=== PATIENT | male | born 1950 | race Caucasian/White ===

== ENCOUNTER 2016-05-31 20:26 | Emergency (ER) | payer OTHER ==
[~2016-05-31] VITALS: Ht 193 cm; Wt 176.5 kg
[~2016-05-31 20:26] MED LIST: ACCUPRIL20 MG PO; ASPIRIN81 M2 PO; BP MEDICATION; CADUET 10/101 TABLET PO; CEFADROXIL500 MG PO; CIPROFLOXACIN750 MG; CIPROFLOXACIN750 MG PO; DOLACET 5/5001 EACH PO; HYDROCODON-ACE1 EACH; KEFLEX500 MG PO; METOPROLOL SUC100 MG; METOPROLOL SUC100 MG PO; QUINAPRIL HCL20 MG PO; SPIRONOLACT/HC1 EACH PO; SPIRONOLACTONE-HCTZ; TRAMADOL HCL PO; TRAMADOL HCL100 MG; TRAMADOL HCL50 MG PO; VICODIN,LORT1 TABLET PO
[2016-05-31 21:28] LABS: HEMATOCRIT 52.2 % (38.0-50.0); MCH 22.2 PG (29.0-34.0); MCHC 30.3 G/DL (30.0-36.0); MCV 73.2 FL (86-99); MEAN PLAT.VOLUME 10.7 uM^3 (9.0-12.4); PLATELET COUNT 195 K/uL (156-360); RBC DIS.WIDTH-CV 18.3 % (11.8-14.6); RBC DIS.WIDTH-SD 41.8 % (39-53); RED BLOOD COUNT 7.13 M/uL (4.00-5.50); WHITE BLOOD COUNT 10.1 K/uL (4.1-10.2)
[2016-05-31 21:32] LABS: CHLORIDE 106 mEq/L (99-109); POTASSIUM 5.3 mEq/L (3.7-5.4); SODIUM 140 mEq/L (136-147)
[2016-05-31 21:34] LABS: GLUCOSE 116 mg/dL (70-99)
[2016-05-31 21:35] LABS: ANION GAP 9 MEQ/L (2-14)
[2016-05-31 21:36] LABS: TOTAL BILIRUBIN 0.8 mg/dL (0.0-1.0)
[2016-05-31 21:37] LABS: ALKALINE PHOSPHATASE 62 IU/L (3-129)
[2016-05-31 21:38] LABS: GFR ESTIMATE (CALCULATED) > 59 mL/min/
[2016-05-31 21:39] LABS: UREA NITROGEN (BUN) 15 mg/dL (9-23)
[2016-05-31] MEDS ORDERED: CIPRO500 MG PO (22:23)
[2016-05-31 22:34] VITALS: BP 158/90
[2016-05-31 22:41] LABS: ADD MIUA? YES; BILIRUBIN NEGATIVE; BLOOD LARGE; COLOR YELLOW ((YELLOW)); GLUCOSE (STRIP) NEGATIVE; KETONES NEGATIVE; LEUKOCYTES NEGATIVE; NITRITE NEGATIVE; PROTEIN (STRIP) 30; SPECIFIC GRAVITY 1.015 (1.000-1.030); UROBILINOGEN 0.2 MG/DL (0.2-1.0)
[2016-05-31 22:52] LABS: CASTS NONE SEEN /LPF; EPITHELIAL CELLS 1+ /HPF; MUCUS TRACE /LPF
[2016-05-31 22:53] LABS: BACTERIA NONE SEEN /HPF; RED BLOOD CELLS TNTC /HPF (0-5); UCUL ADDED? NO; WHITE BLOOD CELLS RARE /HPF (0-5)
== END 2016-05-31 22:46 | disposition home or self-care (01) ==
LOC: EME 20:26
PROC: 0T9B70Z Drainage of Bladder with Drainage Device, Via Natural or Artificial Opening (ICD-10-PCS; principal; 2016-05-31)
DX: R33.9 Retention of urine, unspecified (principal); Z87.448 Personal history of other diseases of urinary system; Z88.2 Allergy status to sulfonamides
CPT/HCPCS: 80053; 81003; 85027; 99281; 99284; C1769

== ENCOUNTER 2016-06-11 06:27 | Inpatient (IN) | payer OTHER ==
[~2016-06-11] VITALS: Ht 198.1 cm; Wt 169.0 kg
[~2016-06-11 06:27] MED LIST changes: +CIPRO500 MG PO
[2016-06-11] MEDS ORDERED: DILTIAZEM 24HR360 M1 PO (06:54)
[2016-06-11] MEDS ORDERED: SPIRONOLACTONE25 MG PO (06:55)
[2016-06-11 07:10] LABS: HEMATOCRIT 47.7 % (38.0-50.0); MCH 22.3 PG (29.0-34.0); MCHC 30.6 G/DL (30.0-36.0); MCV 72.8 FL (86-99); RBC DIS.WIDTH-CV 17.9 % (11.8-14.6); RBC DIS.WIDTH-SD 41.3 % (39-53); RED BLOOD COUNT 6.55 M/uL (4.00-5.50); WHITE BLOOD COUNT 9.9 K/uL (4.1-10.2)
[2016-06-11 07:16] LABS: D-DIMER ELISA > 4.00 mg/L FEU (< 0.57)
[2016-06-11 07:23] LABS: ANION GAP 7 MEQ/L (2-14); CHLORIDE 106 MEQ/L (99-109); POTASSIUM 4.1 MEQ/L (3.7-5.4); SAMPLE HEMOLYSIS CHECK 0; SAMPLE ICTERIC CHECK 0; SAMPLE LIPEMIA CHECK 0; SODIUM 138 MEQ/L (136-147)
[2016-06-11 07:29] LABS: ALKALINE PHOSPHATASE 47 IU/L (3-129); GFR ESTIMATE (CALCULATED) > 59 mL/min/; GLUCOSE 149 mg/dL (70-99); UREA NITROGEN (BUN) 16 mg/dL (9-23)
[2016-06-11 07:32] LABS: TROP-I INTERPRETATION NEGATIVE; TROPONIN-I 0.17 ng/mL (0.0-0.30)
[2016-06-11 07:46] LABS: EOSINOPHIL (%) 4.5 % (0-5); EOSINOPHIL COUNT 0.4 K/uL (0-0.3); IMMATURE GRANULOCYTE (%) 0.4 % (0.0-0.7); LYMPHOCYTE COUNT 1.5 K/uL (1.0-2.8); MEAN PLAT.VOLUME 11.7 uM^3 (9.0-12.4); MONOCYTE (%) 8.4 % (3-12); MONOCYTE COUNT 0.8 K/uL (0-0.8); NEUTROPHIL (%) 71.1 % (45-76); PLAT.SUFFICIENCY DECREASED; PLATELET COUNT 114 K/uL (156-360)
[2016-06-11 08:01] LABS: INTER. NORMALIZED RATIO 1.1; PROTHROMBIN TIME 11.6 (9.2-11.2); PTT 27.2 (25-32)
[2016-06-11] MEDS ORDERED: ASPIRIN325 MG PO (09:41)
[2016-06-11] MEDS ORDERED: LIPITOR10 MG PO (09:42)
[2016-06-11] MEDS ORDERED: FLONASE16 G1 BOTH NARES (09:43)
[2016-06-11] MEDS ORDERED: ULTRAVATE15 G1 TP (09:44)
[2016-06-11] MEDS ORDERED: VENTOLIN HFA18 GM IH (09:46)
[2016-06-11 11:02] VITALS: BP 159/92
[2016-06-11 11:34] VITALS: BP 158/76
[2016-06-11 14:21] LABS: TROP-I INTERPRETATION NEGATIVE; TROPONIN-I 0.16 ng/mL (0.0-0.30)
[2016-06-11 15:51] VITALS: BP 158/86
[2016-06-11 20:21] VITALS: BP 146/91
[2016-06-11 20:44] LABS: TROP-I INTERPRETATION NEGATIVE; TROPONIN-I 0.15 ng/mL (0.0-0.30)
[2016-06-11 20:45] LABS: INTER. NORMALIZED RATIO 1.1; PROTHROMBIN TIME 11.4 (9.2-11.2); PTT 27.3 (25-32)
[2016-06-11 22:35] VITALS: BP 138/98
[2016-06-11 23:53] LABS: METH RESISTANT S AUREUS PCR NEGATIVE (NEGATIVE)
[2016-06-12] VITALS (11 sets, daily range): BP systolic 124–177; BP diastolic 70–98
[2016-06-12 00:05] LABS: PROBE CHECK PASS; SPECIMEN PROCESSING CONTROL PASS
[2016-06-12 03:35] LABS: TROP-I INTERPRETATION NEGATIVE; TROPONIN-I 0.11 ng/mL (0.0-0.30)
[2016-06-12 10:35] LABS: HEMATOCRIT 47.2 % (38.0-50.0); MCHC 30.5 G/DL (30.0-36.0); MCV 72.2 FL (86-99); MEAN PLAT.VOLUME 11.9 uM^3 (9.0-12.4); PLATELET COUNT 125 K/uL (156-360); RBC DIS.WIDTH-CV 17.6 % (11.8-14.6); RBC DIS.WIDTH-SD 41.1 % (39-53); RED BLOOD COUNT 6.54 M/uL (4.00-5.50); WHITE BLOOD COUNT 7.8 K/uL (4.1-10.2)
[2016-06-12 10:56] LABS: ANION GAP 5 MEQ/L (2-14); CHLORIDE 104 MEQ/L (99-109); GFR ESTIMATE (CALCULATED) > 59 mL/min/; GLUCOSE 122 mg/dL (70-99); POTASSIUM 4.4 MEQ/L (3.7-5.4); SAMPLE HEMOLYSIS CHECK 0; SAMPLE ICTERIC CHECK 0; SAMPLE LIPEMIA CHECK 0; SODIUM 138 MEQ/L (136-147); UREA NITROGEN (BUN) 11 mg/dL (9-23)
[2016-06-12 11:21] LABS: TROP-I INTERPRETATION NEGATIVE; TROPONIN-I 0.09 ng/mL (0.0-0.30)
[2016-06-12 19:32] LABS: TROP-I INTERPRETATION NEGATIVE; TROPONIN-I 0.08 ng/mL (0.0-0.30)
[2016-06-13 04:00] VITALS: BP 131/79
[2016-06-13 05:57] LABS: TROP-I INTERPRETATION NEGATIVE; TROPONIN-I 0.07 ng/mL (0.0-0.30)
[2016-06-13 05:59] LABS: ANION GAP 7 MEQ/L (2-14); CHLORIDE 104 MEQ/L (99-109); GFR ESTIMATE (CALCULATED) > 59 mL/min/; GLUCOSE 114 mg/dL (70-99); SAMPLE HEMOLYSIS CHECK 0; SAMPLE ICTERIC CHECK 0; SAMPLE LIPEMIA CHECK 0; SODIUM 138 MEQ/L (136-147); UREA NITROGEN (BUN) 14 mg/dL (9-23)
[2016-06-13 06:47] LABS: HEMATOCRIT 46.3 % (38.0-50.0); MCH 22.3 PG (29.0-34.0); MCHC 30.5 G/DL (30.0-36.0); MCV 73.3 FL (86-99); MEAN PLAT.VOLUME 12.1 uM^3 (9.0-12.4); PLATELET COUNT 146 K/uL (156-360); RBC DIS.WIDTH-CV 18.1 % (11.8-14.6); RBC DIS.WIDTH-SD 42.5 % (39-53); RED BLOOD COUNT 6.32 M/uL (4.00-5.50); WHITE BLOOD COUNT 8.7 K/uL (4.1-10.2)
[2016-06-13 08:41] VITALS: BP 126/83
[2016-06-13 12:00] VITALS: BP 156/78
[2016-06-13 16:00] VITALS: BP 135/75
[2016-06-13 20:00] VITALS: BP 162/86
[2016-06-14] VITALS (7 sets, daily range): BP systolic 124–171; BP diastolic 69–93
[2016-06-14 09:57] LABS: HEMATOCRIT 48.1 % (38.0-50.0); MCH 22.3 PG (29.0-34.0); MCHC 30.8 G/DL (30.0-36.0); MCV 72.5 FL (86-99); MEAN PLAT.VOLUME 11.4 uM^3 (9.0-12.4); PLATELET COUNT 170 K/uL (156-360); RBC DIS.WIDTH-CV 17.6 % (11.8-14.6); RBC DIS.WIDTH-SD 40.4 % (39-53); RED BLOOD COUNT 6.63 M/uL (4.00-5.50); WHITE BLOOD COUNT 7.8 K/uL (4.1-10.2)
[2016-06-14 10:08] LABS: ANION GAP 8 MEQ/L (2-14); CHLORIDE 103 MEQ/L (99-109); POTASSIUM 4.4 MEQ/L (3.7-5.4); SAMPLE HEMOLYSIS CHECK 0; SAMPLE ICTERIC CHECK 0; SAMPLE LIPEMIA CHECK 0; SODIUM 138 MEQ/L (136-147)
[2016-06-14 10:13] LABS: GFR ESTIMATE (CALCULATED) > 59 mL/min/; GLUCOSE 138 mg/dL (70-99); UREA NITROGEN (BUN) 14 mg/dL (9-23)
[2016-06-15 03:10] VITALS: BP 135/94
[2016-06-15 07:02] LABS: ANION GAP 8 MEQ/L (2-14); CHLORIDE 106 MEQ/L (99-109); GFR ESTIMATE (CALCULATED) > 59 mL/min/; GLUCOSE 112 mg/dL (70-99); POTASSIUM 4.8 MEQ/L (3.7-5.4); SAMPLE HEMOLYSIS CHECK 0; SAMPLE ICTERIC CHECK 0; SAMPLE LIPEMIA CHECK 0; SODIUM 140 MEQ/L (136-147); UREA NITROGEN (BUN) 15 mg/dL (9-23)
[2016-06-15 07:27] LABS: HEMATOCRIT 47.7 % (38.0-50.0); MCH 22.1 PG (29.0-34.0); MCHC 30.4 G/DL (30.0-36.0); MCV 72.6 FL (86-99); PLATELET COUNT 172 K/uL (156-360); RBC DIS.WIDTH-CV 17.6 % (11.8-14.6); RBC DIS.WIDTH-SD 41.1 % (39-53); RED BLOOD COUNT 6.57 M/uL (4.00-5.50); WHITE BLOOD COUNT 9.3 K/uL (4.1-10.2)
[2016-06-15] MEDS ORDERED: ELIQUIS5 MG PO (07:58)
[2016-06-15] MEDS ORDERED: ASPIR 8181 M1 PO (08:01)
[2016-06-15 09:00] VITALS: BP 145/83
[2016-06-16 16:34] LABS: DRVVT Mixing Study Interp Not Indicated (()); PROTEIN C FUNCTIONAL ACTIVITY+ 116 % (70-180); PTT-LA 89 sec (<=40); Protein S, Free 87 % normal (57-171); dRVVT Screen 36 sec (<=45)
[2016-06-19 09:45] LABS: ANTITHROMBIN III ACTIVITY+ 70 % activi (80-120)
== END 2016-06-15 11:25 | disposition home or self-care (01) | DRG 167 ==
LOC: EME 06:27 → EDOF 09:04 → 5WEST 10:48 → 4WEST 20:06 → 4EAST 20:06 → 5WEST 20:06 → 4WEST 22:26 → 4EAST 06-14 02:47
PROVIDERS: Anesthesiology; Emergency Medicine; Hospitalist; Internal Medicine; Nurse Practitioner Family; Physician Assistant Medical
DX: I26.92 Saddle embolus of pulmonary artery without acute cor pulmonale (principal); I82.411 Acute embolism and thrombosis of right femoral vein; I82.441 Acute embolism and thrombosis of right tibial vein; I82.431 Acute embolism and thrombosis of right popliteal vein; I82.491 Acute embolism and thrombosis of other specified deep vein of right lower extremity; I10 Essential (primary) hypertension; D56.1 Beta thalassemia; C84.A0 Cutaneous T-cell lymphoma, unspecified, unspecified site; E01.0 Iodine-deficiency related diffuse (endemic) goiter; I87.2 Venous insufficiency (chronic) (peripheral); N35.9 Urethral stricture, unspecified; E78.2 Mixed hyperlipidemia; G47.33 Obstructive sleep apnea (adult) (pediatric); Z99.81 Dependence on supplemental oxygen; R73.03 Prediabetes; E66.01 Morbid (severe) obesity due to excess calories; Z68.42 Body mass index [BMI] 45.0-49.9, adult; M19.90 Unspecified osteoarthritis, unspecified site; L30.9 Dermatitis, unspecified; R33.9 Retention of urine, unspecified; Z96.642 Presence of left artificial hip joint
CPT/HCPCS: 71010; 71020; 71275; 80048; 80053; 81240 90; 83090 90; 83880; 84484; 85025; 85027; 85240 90; 85300 90; 85303 90; 85305 90; 85306 90; 85307 90; 85379; 85610; 85613 90; 85730; 85730 90; 86146 90; 86147 90; 87641; 93005; 93306; 93970; 94010; 94799; 99202; 99281; 99285; C1769; J1644; J2250; J7040

== ENCOUNTER 2017-02-22 07:53 | Emergency (ER) | payer OTHER ==
[~2017-02-22] VITALS: Ht 193 cm; Wt 167.4 kg
[~2017-02-22 07:53] MED LIST changes: +ASPIR 8181 M1 PO; +ASPIRIN325 MG PO; +DILTIAZEM 24HR360 M1 PO; +ELIQUIS5 MG PO; +FLONASE16 G1 BOTH NARES; +LIPITOR10 MG PO; +SPIRONOLACTONE25 MG PO; +ULTRAVATE15 G1 TP; +VENTOLIN HFA18 GM IH
[2017-02-22 08:00] VITALS: BP 163/92
[2017-02-22 09:18] LABS: INTER. NORMALIZED RATIO 1.2; PROTHROMBIN TIME 13.2 SEC (10.2-12.9)
[2017-02-22 09:20] LABS: CHLORIDE 106 mEq/L (99-109); POTASSIUM 4.4 mEq/L (3.7-5.4); SODIUM 138 mEq/L (136-147)
[2017-02-22 09:21] LABS: GLUCOSE 127 mg/dL (70-99); PTT 34.1 SEC (25-37)
[2017-02-22 09:23] LABS: ANION GAP 7 MEQ/L (2-14)
[2017-02-22 09:25] LABS: GFR ESTIMATE (CALCULATED) > 59 mL/min/ (58.99-99999)
[2017-02-22 09:26] LABS: UREA NITROGEN (BUN) 15 mg/dL (9-23)
[2017-02-22 09:30] LABS: HEMATOCRIT 50.4 % (38.0-50.0); MCH 22.7 PG (29.0-34.0); MCHC 31.3 G/DL (30.0-36.0); MCV 72.4 FL (86-99); MEAN PLAT.VOLUME 11.4 uM^3 (9.0-12.4); PLATELET COUNT 179 K/uL (156-360); RBC DIS.WIDTH-SD 40.1 % (39-53); RED BLOOD COUNT 6.96 M/uL (4.00-5.50); WHITE BLOOD COUNT 8.6 K/uL (4.1-10.2)
[2017-02-22] MEDS ORDERED: AUGMENTIN875 MG PO (16:00)
[2017-02-23] MEDS ORDERED: AUGMENTIN875 MG PO (00:01)
[2017-02-23] MEDS ORDERED: ELIQUIS5 MG PO (00:01)
[2017-02-23] MEDS ORDERED: ADULT ASPIRIN R81 MG PO (00:02)
[2017-02-23] MEDS ORDERED: TRIAMCINOLONE A15 G2 TP (00:04)
[2017-02-23] MEDS ORDERED: [UNRECOGNIZED DRUG - OTHER] PO ×2 (00:05→00:06)
== END 2017-02-22 11:02 | disposition home or self-care (01) ==
LOC: EME 07:53
PROVIDERS: Nurse Practitioner Family
PROC: 2Y41X5Z Packing of Nasal Region using Packing Material (ICD-10-PCS; principal; 2017-02-22)
DX: R04.0 Epistaxis (principal); Z86.711 Personal history of pulmonary embolism; Z86.718 Personal history of other venous thrombosis and embolism; Z79.01 Long term (current) use of anticoagulants; I10 Essential (primary) hypertension; E78.5 Hyperlipidemia, unspecified; G47.30 Sleep apnea, unspecified
CPT/HCPCS: 80048; 85027; 85610; 85730; 99281; 99283

== ENCOUNTER 2017-02-22 14:10 | Emergency (ER) | payer OTHER ==
[~2017-02-22] VITALS: Ht 193 cm; Wt 167.6 kg
[2017-02-22] MEDS ORDERED: AUGMENTIN875 MG PO (16:00)
[2017-02-22 16:32] VITALS: BP 164/94
[2017-02-23] MEDS ORDERED: ELIQUIS5 MG PO (00:01)
[2017-02-23] MEDS ORDERED: AUGMENTIN875 MG PO (00:01)
[2017-02-23] MEDS ORDERED: ADULT ASPIRIN R81 MG PO (00:02)
[2017-02-23] MEDS ORDERED: TRIAMCINOLONE A15 G2 TP (00:04)
[2017-02-23] MEDS ORDERED: [UNRECOGNIZED DRUG - OTHER] PO ×2 (00:05→00:06)
== END 2017-02-22 16:34 | disposition home or self-care (01) ==
LOC: EME 14:10
PROC: 2Y41X5Z Packing of Nasal Region using Packing Material (ICD-10-PCS; principal; 2017-02-22)
DX: R04.0 Epistaxis (principal); I48.92 Unspecified atrial flutter; Z86.718 Personal history of other venous thrombosis and embolism; Z79.01 Long term (current) use of anticoagulants; I10 Essential (primary) hypertension; Z85.828 Personal history of other malignant neoplasm of skin; Z96.649 Presence of unspecified artificial hip joint; Z88.8 Allergy status to other drugs, medicaments and biological substances
CPT/HCPCS: 99281; 99285

== ENCOUNTER 2017-02-22 21:00 | Observation (INO) | payer OTHER ==
[~2017-02-22] VITALS: Ht 193 cm; Wt 169.0 kg
[~2017-02-22 21:00] MED LIST changes: +AUGMENTIN875 MG PO
[2017-02-23] MEDS ORDERED: ELIQUIS5 MG PO (00:01)
[2017-02-23] MEDS ORDERED: AUGMENTIN875 MG PO (00:01)
[2017-02-23] MEDS ORDERED: ADULT ASPIRIN R81 MG PO (00:02)
[2017-02-23] MEDS ORDERED: TRIAMCINOLONE A15 G2 TP (00:04)
[2017-02-23] MEDS ORDERED: [UNRECOGNIZED DRUG - OTHER] PO ×2 (00:05→00:06)
[2017-02-23 11:02] VITALS: BP 158/77
[2017-02-23 15:41] VITALS: BP 150/74
[2017-02-23 23:17] VITALS: BP 147/75
[2017-02-24 03:37] VITALS: BP 156/81
[2017-02-24 05:53] LABS: EOSINOPHIL (%) 1.4 % (0-5); EOSINOPHIL COUNT 0.2 K/uL (0-0.3); HEMATOCRIT 48.1 % (38.0-50.0); IMMATURE GRANULOCYTE (%) 0.4 % (0.0-0.7); IMMATURE GRANULOCYTE COUNT 0.1 K/uL; INSTRUMENT ABS NEUTROPHIL CT 9.2 K/uL; LYMPHOCYTE COUNT 1.4 K/uL (1.0-2.8); MCH 22.6 PG (29.0-34.0); MEAN PLAT.VOLUME 11.3 uM^3 (9.0-12.4); MONOCYTE (%) 9.2 % (3-12); MONOCYTE COUNT 1.1 K/uL (0-0.8); NEUTROPHIL (%) 76.9 % (45-76); NEUTROPHIL COUNT 9.2 K/uL (1.8-6.4); PLATELET COUNT 184 K/uL (156-360); RBC DIS.WIDTH-SD 41.8 % (39-53); RED BLOOD COUNT 6.59 M/uL (4.00-5.50)
[2017-02-24 05:56] LABS: ANION GAP 7 MEQ/L (2-14); CHLORIDE 103 MEQ/L (99-109); GFR ESTIMATE (CALCULATED) > 59 mL/min/ (58.99-99999); GLUCOSE 121 mg/dL (70-99); POTASSIUM 4.3 MEQ/L (3.7-5.4); SAMPLE HEMOLYSIS CHECK 0; SAMPLE ICTERIC CHECK 0; SAMPLE LIPEMIA CHECK 0; SODIUM 137 MEQ/L (136-147); UREA NITROGEN (BUN) 11 mg/dL (9-23)
[2017-02-24 08:14] VITALS: BP 157/93
[2017-02-24 11:17] VITALS: BP 145/85
[2017-02-24 16:05] VITALS: BP 147/83
[2017-02-24 22:53] VITALS: BP 148/78
[2017-02-25 02:57] VITALS: BP 143/77
[2017-02-25 08:59] VITALS: BP 146/73
[2017-02-25 11:57] VITALS: BP 143/81
[2017-02-25] MEDS ORDERED: SALINE NASAL SP45 ML BOTH NARES (12:26)
[2017-02-25] MEDS ORDERED: ELIQUIS2.5 MG PO (12:27)
[2017-02-25] MEDS ORDERED: AUGMENTIN875 MG PO (13:25)
== END 2017-02-25 13:57 | disposition home or self-care (01) ==
LOC: EME 21:00 → EDOF 02-23 01:59 → ENRESERV 02-23 02:07 → 5WEST 02-23 10:51
PROVIDERS: Internal Medicine; Physician Assistant Medical
PROC: 2Y41X5Z Packing of Nasal Region using Packing Material (ICD-10-PCS; 2017-02-23)
PROC: 09JK8ZZ Inspection of Nasal Mucosa and Soft Tissue, Via Natural or Artificial Opening Endoscopic (ICD-10-PCS; principal; 2017-02-25)
DX: R04.0 Epistaxis (principal); Z79.01 Long term (current) use of anticoagulants; Z98.890 Other specified postprocedural states; Z85.72 Personal history of non-Hodgkin lymphomas; I10 Essential (primary) hypertension; Z86.711 Personal history of pulmonary embolism; Z86.718 Personal history of other venous thrombosis and embolism; D56.3 Thalassemia minor; G47.33 Obstructive sleep apnea (adult) (pediatric)
CPT/HCPCS: 80048; 85025; 85027; 94799; 99281; 99285; G0378; J0360; J1170; J2270; J2405; J3010; J7030

== ENCOUNTER 2017-03-03 15:26 | Emergency (ER) | payer OTHER ==
[~2017-03-03] VITALS: Ht 193 cm; Wt 166.7 kg
[~2017-03-03 15:26] MED LIST changes: +ADULT ASPIRIN R81 MG PO; +ELIQUIS2.5 MG PO; +SALINE NASAL SP45 ML BOTH NARES; +TRIAMCINOLONE A15 G2 TP; +[UNRECOGNIZED DRUG - OTHER] PO
[2017-03-03 16:24] LABS: CHLORIDE 104 mEq/L (99-109); POTASSIUM 4.4 mEq/L (3.7-5.4)
[2017-03-03 16:25] LABS: SODIUM 139 mEq/L (136-147)
[2017-03-03 16:26] LABS: GLUCOSE 111 mg/dL (70-99)
[2017-03-03 16:30] LABS: CREATININE 0.9 mg/dL (0.6-1.3); GFR ESTIMATE (CALCULATED) > 59 mL/min/ (58.99-99999)
[2017-03-03 16:31] LABS: UREA NITROGEN (BUN) 14 mg/dL (9-23)
[2017-03-03 16:36] LABS: HEMATOCRIT 46.3 % (38.0-50.0); HEMOGLOBIN 14.4 G/DL (12.5-16.6); MCH 22.7 PG (29.0-34.0); MCHC 31.1 G/DL (30.0-36.0); MCV 72.9 FL (86-99); PLATELET COUNT 230 K/uL (156-360); RBC DIS.WIDTH-CV 17.2 % (11.8-14.6); RBC DIS.WIDTH-SD 41.2 % (39-53); RED BLOOD COUNT 6.35 M/uL (4.00-5.50); WHITE BLOOD COUNT 9.3 K/uL (4.1-10.2)
[2017-03-03 17:23] VITALS: BP 166/95
== END 2017-03-03 17:23 | disposition home or self-care (01) ==
LOC: EME 15:26
PROVIDERS: Physician Assistant Medical
PROC: 0T9B70Z Drainage of Bladder with Drainage Device, Via Natural or Artificial Opening (ICD-10-PCS; principal; 2017-03-03)
DX: N35.9 Urethral stricture, unspecified (principal); R33.9 Retention of urine, unspecified; I10 Essential (primary) hypertension; Z85.828 Personal history of other malignant neoplasm of skin; Z79.82 Long term (current) use of aspirin; Z88.8 Allergy status to other drugs, medicaments and biological substances; Z88.2 Allergy status to sulfonamides
CPT/HCPCS: 80048; 81003; 85027; 99281; 99284